=== PATIENT | male | born 1965 | race Caucasian/White ===

== ENCOUNTER 2018-06-13 08:12 | Day surgery (SDC) | payer BC ==
[~2018-06-13 08:12] MED LIST: Lactated Ringers 1,000 ML IV SCH; ceFAZolin 2 GM in Premix Bag 1 BAG IV ONE
[2018-06-13] MEDS ORDERED: Propofol 200 MG/20 ML SDV IV ONE (10:00)
[2018-06-13] MEDS ORDERED: Simethicone Drops 40 MG/0.6 ML 30 ML Bottle ONE (10:20)
--- NOTE | 2018-06-13 10:51 | PCM.OPNOTE ---
- General Post-Op/Procedure Note Date of Surgery/Procedure: 06/13/18 Operative Procedure(s): c scope Findings: diverticulosis from the mid transverse to sigmoid colon Pre Op Diagnosis: colon cancer screening Post-Op Diagnosis: diverticulosis of the colon Anesthesia Technique: LEXUS Primary Surgeon: Biju Chang Anesthesia Provider: Jh Gregory Pathology: none Complications: None Condition: Good Free Text/Narrative:: see dictation.
--- NOTE | 2018-06-13 17:21 | OR ---
DATE OF OPERATION: 06/13/2018 SURGEON: Biju Chang MD PROCEDURE PERFORMED: Colonoscopy. PREOPERATIVE DIAGNOSIS: Need for screening C-scope. POSTOPERATIVE DIAGNOSIS: Diverticulosis of the transverse, descending, and sigmoid colon. INDICATIONS FOR PROCEDURE: This is a 52-year-old white male, who presents for a screening colonoscopy. He was offered and accepted same. DESCRIPTION OF OPERATION: After an excellent IV sedation was administered, digital rectal exam was performed. No marked abnormality was noted. Flexible colonoscope was inserted and advanced to the cecum without difficulty. The prep was excellent. The following findings were noted: Ascending colon, unremarkable. Transverse colon, occasional diverticula. Descending colon, occasional diverticula. Sigmoid, occasional diverticula. Rectum and anus, unremarkable. Colon was deflated as the scope was removed. The patient tolerated the procedure well and was taken to recovery. RECOMMENDATIONS: Repeat colonoscopy in 10 years. /[id number] /MODL
== END 2018-06-13 11:42 | disposition home or self-care (01) ==
LOC: FB.SDS 08:12
PROVIDERS: ATTEND Surgery
DX: Z12.11 Encounter for screening for malignant neoplasm of colon (principal); K57.30 Diverticulosis of large intestine without perforation or abscess without bleeding; I10 Essential (primary) hypertension; K21.9 Gastro-esophageal reflux disease without esophagitis; J31.0 Chronic rhinitis; M17.12 Unilateral primary osteoarthritis, left knee; K42.9 Umbilical hernia without obstruction or gangrene; Z79.82 Long term (current) use of aspirin; Z79.899 Other long term (current) drug therapy
CPT/HCPCS: 45378; A9270; J2704; J7120